=== PATIENT | male | born 1980 | race Caucasian/White ===

== ENCOUNTER 2018-12-20 09:32 | Day surgery (SDC) | payer OTHER ==
[~2018-12-20 09:32] MED LIST: VANCOMYCIN/NS 1 gm 1 GM/250 ML BAG IV ONE
[2018-12-20] MEDS ORDERED: Ringers Lactate 1,000 ML IV ONE (09:47)
[2018-12-20] MEDS ORDERED: FENTANYL CITR 100 MCG/2 ML ONE (11:44)
[2018-12-20] MEDS ORDERED: MIDAZOLAM HCL 2 MG/2 ML INJ ONE (11:44)
[2018-12-20] MEDS ORDERED: ROCURONIUM 50 MG/5 ML VIAL IV ONE (11:44)
[2018-12-20] MEDS ORDERED: PROPOFOL 200 MG/20 ML VIAL IV ONE (11:44)
[2018-12-20] MEDS ORDERED: LIDOCAINE 2% MPF 5 ML VIAL ONE (11:44)
[2018-12-20] MEDS ORDERED: BUPIVACA 0.25%/EPI 0.0005% MDV 50 ML VIAL ONE (12:05)
--- NOTE | 2018-12-20 12:35 | P.OP ---
Preoperative diagnosis: Pilonidal Cyst Postoperative diagnosis: Pilonidal Abscess Primary procedure: Incision and Drainage of Pilonidal Cyst Anesthesia: GETA + Local Estimated blood loss: <10cc Specimen: cultures Findings: abscess Complications: None Transferred to: Recovery Room Condition: Good
[2018-12-20] MEDS ORDERED: GLYCOPYRROLATE 0.2 MG/ML SYR ONE ×2 (12:40)
[2018-12-20] MEDS ORDERED: KETOROLAC 30 MG/ML INJ ONE (12:40)
[2018-12-20] MEDS ORDERED: NEOSTIGMINE 1 MG/ML -10 ML VIAL ONE (12:41)
[2018-12-20] MEDS ORDERED: HYDROMORPHONE HCL 1 MG/ML INJ ONE (13:13)
[2018-12-20] MEDS ORDERED: HYDROCODONE/APAP 5/325 MG TAB ONE (13:44)
--- NOTE | 2018-12-20 17:21 | OP ---
Date of Procedure: 12/20/2018 Surgeon: Rakesh Alexis MD, Preoperative Diagnosis: Pilonidal cyst. Postoperative Diagnosis: Pilonidal abscess. Anesthesia: General tracheal plus local with 0.25% Marcaine with epinephrine. Primary Procedure: Incision and drainage of pilonidal cyst/abscess. Estimated Blood Loss: Less than 2 cc. Specimen: Cultures sent for both aerobic and anaerobic speciation. Findings: Pilonidal abscess approximately 4 cm x 2 cm x 3 cm depth. Disposition: Transferred to recovery room in good condition. Procedure In Detail: After informed was consent obtained, the patient was brought to the operating r oom, prepped and draped in the usual, sterile fashion. After adequate anesthesia was achieved, a lef t paramedian incision was made for approximately 3.5 cm down to the subcutaneous tissues. Immediatel y encountered was a complex abscess. This was cultured at this time and sent off for an examination. The abscess was drained completely at this time and any necrotic tissue was removed with curette. Hemostasis was achieved with electrocautery, and the area was copiously irrigated multiple times unti l completely dry. The wound was then packed with 0.5 inch iodoform packing and a sterile dressing wa s placed over top. The patient tolerated the procedure well without evidence of complication and transferred to PACU in good condition. All counts were correct at the end of the case. ANGELINA/DWAIN Voice ID: [id number] Report ID: [id number]
== END 2018-12-20 14:15 | disposition home or self-care (01) ==
LOC: OR 09:32
PROVIDERS: ATTEND Surgery
PROC: 0H98XZZ Drainage of Buttock Skin, External Approach (ICD-10-PCS; principal; 2018-12-20 10:30)
DX: L05.01 Pilonidal cyst with abscess (principal); K21.9 Gastro-esophageal reflux disease without esophagitis; F17.210 Nicotine dependence, cigarettes, uncomplicated; Z79.899 Other long term (current) drug therapy
CPT/HCPCS: 87070; 87075; 87205; J1170; J2250; J2704; J2710; J3010; J3370